=== PATIENT | female | born 1995 | race Caucasian/White ===

== ENCOUNTER 2018-03-23 13:35 | Emergency (ER) | payer OTHER, MEDICAID ==
[~2018-03-23] VITALS: Ht 165.1 cm; Wt 68.0 kg
[2018-03-23 15:16] VITALS: BP 124/84
[2018-03-23] MEDS ORDERED: KETOROLAC TROMETH 60MG/2ML VIAL IM ONE (15:30)
[2018-03-23] MEDS ORDERED: HYDROcodone-ACET 7.5/325MG TAB PO ONE (16:45)
== END 2018-03-23 17:01 | disposition home or self-care (01) ==
LOC: EDBD 13:35 → ER 13:39
DX: S16.1XXA Strain of muscle, fascia and tendon at neck level, initial encounter (principal); S46.912A Strain of unspecified muscle, fascia and tendon at shoulder and upper arm level, left arm, initial encounter; S29.012A Strain of muscle and tendon of back wall of thorax, initial encounter; S76.011A Strain of muscle, fascia and tendon of right hip, initial encounter; V43.52XA Car driver injured in collision with other type car in traffic accident, initial encounter; Y93.89 Activity, other specified; Y99.8 Other external cause status; Y92.410 Unspecified street and highway as the place of occurrence of the external cause
CPT/HCPCS: 72040; 72070; 73030; 73502; 81025; 96372; 99283; J1885